=== PATIENT | male | born 1945 | race Caucasian/White ===

== ENCOUNTER 2019-04-19 14:27 | Inpatient (IN) | payer OTHER ==
[2019-04-19 14:50] LABS: Absolute Lymphocytes (CBC) 1.3 K/uL (0.7-4.9); Basophils % 0.5 % (0-1.3); Eosinophils % 1.9 % (0-4.4); Hematocrit 44.6 % (39.6-49.0); Lymphocytes % 10.3 % (15.3-44.8); MPV 7.9 fL (7.6-11.3); Monocytes % 7.1 % (3.3-12.3)
[2019-04-19] MEDS ORDERED: IPRATROPIUM BROM 0.5MG/2.5ML ONE (14:50)
[2019-04-19] MEDS ORDERED: LEVALBUTEROL 0.63 MG/3 ML NEB ONE (14:50)
[2019-04-19 14:52] LABS: Protime INR 0.89
[2019-04-19] MEDS ORDERED: METHYLPREDNISOLONE 125 MG INJ ONE (14:56)
[2019-04-19] MEDS ORDERED: FOLIC ACID 5 MG/ML VIAL ONE (14:57)
[2019-04-19] MEDS ORDERED: NA CHLORIDE 0.9% 1,000 ML ONE (14:57)
[2019-04-19] MEDS ORDERED: NA CHLORIDE 0.9% 500 ML ONE (14:57)
[2019-04-19] MEDS ORDERED: PANTOPRAZOLE 40 MG INJ ONE (14:58)
[2019-04-19 15:12] LABS: Albumin 3.8 g/dL (3.4-5.0); Bilirubin Direct 0.1 mg/dL (0-0.2); Bilirubin Total 0.3 mg/dL (0.2-1.0); Potassium 5.2 mmol/L (3.5-5.1); Protein, Total 7.9 g/dL (6.4-8.2); Troponin (Emerg Dept Use Only) 0.02 ng/mL (0.0-0.045)
--- NOTE | 2019-04-19 15:23 | RAD REPORT ---
EXAM DESCRIPTION: CT - Ct Stroke Brain Wo Cont - 04/19/2019 3:10 pm CLINICAL HISTORY: Acute onset speech abnormality, stroke-like symptoms CLINICAL HISTORY: November 2015 TECHNIQUE: Axial 5 millimeter thick images of the head were obtained without IV contrast. All CT scans are performed using dose optimization technique as appropriate and may include automated exposure control or mA/KV adjustment according to patient size. FINDINGS: No intracranial hemorrhage, mass, or cerebral edema. No acute infarction identifiable. No cortical edema or sulcal effacement. Patient has prominent atrophy changes worse in the cerebral jesus alberto sphere were there is additional volume loss from old CVA changes. Old right cerebellum CVA changes ar e present. Ventricles are in proportion to the amount of volume loss. Underlying chronic ischemic viviana nges are present. Gould matter-white matter differentiation is preserved. No globe or orbital content abnormality. Visualized portions of the mastoid air cells, paranasal sinuses, and orbits are unremarkable. Findings telephoned to Dr Soto 1518 hours IMPRESSION: No intracranial hemorrhage is present. No acute cortical based infarction. Atrophy, chronic ischemic change and old infarction changes are present. Ventricles are in proportion to volume loss.
--- NOTE | 2019-04-19 15:25 | RAD REPORT ---
EXAM DESCRIPTION: RAD - Chest Single View - 04/19/2019 3:11 pm CLINICAL HISTORY: Difficulty breathing, Stroke protocol chest film COMPARISON: December 2015 TECHNIQUE: AP portable chest image was obtained 1444 hour . FINDINGS: Significant baseline fibrotic lung change present. Increased interstitial and patchy alveo lar opacities have developed in the right lower lung field. Overall lung markings are fractionally in creased from the comparison. Heart and vasculature are normal. No measurable pleural effusion and no pneumothorax. No acute bony abnormality seen. No acute aortic findings suspected. IMPRESSION: Suspected early right lung base pneumonia.
[2019-04-19 15:26] LABS: Blood Gas Oxyhemoglobin 97.5 % (94-97); Blood O2 Saturation 99.3 % (92-98.5)
[2019-04-19] MEDS ORDERED: DEXAMETHASONE 10 MG/ML VIAL ONE (15:40)
[2019-04-19] MEDS ORDERED: Levofloxacin500mg IV 500 MG/100 ML BAG IV ONE (15:40)
--- NOTE | 2019-04-19 15:51 | ER ---
Nurse's Notes [facility] Name: Gallo Yu Age: 73 yrs Sex: Male : 1945 Arrival Date: 04/19/2019 Time: 14:29 Bed 3 Private MD: Diagnosis: Chronic obstructive pulmonary disease with (acute) exacerbation;Hypoxemia;Hypo-osmolality and hyponatremia;Dyspnea;Pneumonia due to other specified bacteria Presentation: 04/19 14:25 Presenting complaint: EMS states: caretaker resort reported that pt started having difficulty iw breathing about an hour ago, then had sudden onset of garbled speech while EMS was on scene, caretaker resort arrives to ER and stated that pt always has garbled speech but it became a bit worse when he started having trouble breathing, EMS reports pt was 80% on RA, placed on NRB is 100%, labored breathing, RT at bedside for BiPAP placement , pt has Shannon in place, hx of COPD, CVA, bipolar, is on blood thinner and inhaler. Transition of care: patient was not received from another setting of care. Onset of symptoms was April 19, 2019. Risk Assessment: Do you want to hurt yourself or someone else? Patient reports no desire to harm self or others. Initial Sepsis Screen: Does the patient meet any 2 criteria? RR > 20 per min. No. Patient's initial sepsis screen is negative. Does the patient have a suspected source of infection? No. Patient's initial sepsis screen is negative. Care prior to arrival: Glucose check: 196 Oxygen administered. via a non-rebreather mask. 14:25 Method Of Arrival: EMS: [facility] iw 14:25 Acuity: MADDY 1 iw 14:25 Note EMS reports worsening garbled speech started at 1415. aa5 14:25 An acute neurological deficit is present. The patients blood glucose was checked before aa5 arriving to the hospital and was found to be normal. Triage Assessment: 14:25 The onset of the patients symptoms was April 19, 2019 at 14:15. aa5 Stroke Activation: Symptom onset < 3 hours Physician: Stroke Attending; Name: ; Notified At: ; Arrived At: Physician: Chief Stroke Resident; Name: ; Notified At: ; Arrived At: Physician: Stroke Resident; Name: ; Notified At: ; Arrived At: Physician: ED Attending; Name: ; Notified At: ; Arrived At: Physician: ED Resident; Name: ; Notified At: ; Arrived At: Historical: - Allergies: 14:51 GABAPENTIN; iw - Home Meds: 14:51 clopidogrel 75 mg Oral tab 1 tab once daily [Active]; multivitamin with minerals Oral iw tab [Active]; 17:23 carbamazepine 200 mg Oral tab 2 tabs twice a day [Active]; lisinopril 10 mg Oral tab 1 iw tab once daily [Active]; perphenazine 4 mg oral tab 1 tab 2 times per day [Active]; BuSpar Oral three times a day [Active]; lorazepam 1 mg Oral tab 1 tab 2 times per day, PRN [Active]; hydroxyzine HCl 25 mg Oral tab 2 times per day, PRN [Active]; - PMHx: 14:51 CVA; Depression; Hypertension; PAD; iw - 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 - Family history:: not pertinent. - Ebola Screening: : Patient negative for fever greater than or equal to 101.5 degrees Fahrenheit, and additional compatible Ebola Virus Disease symptoms Patient denies exposure to infectious person Patient denies travel to an Ebola-affected area in the 21 days before illness onset No symptoms or risks identified at this time. - Social history:: Smoking status: Patient uses tobacco products, smokes one pack cigarettes per day. Screenin:30 Abuse screen: Denies threats or abuse. Nutritional screening: No deficits noted. aa5 Tuberculosis screening: No symptoms or risk factors identified. Fall Risk Fall in past 12 months (25 points). Secondary diagnosis (15 points) CVA, IV access (20 points). Ambulatory Aid- None/Bed Rest/Nurse Assist (0 pts). Mental Status- Oriented to own ability (0 pts). Total Arciniega Fall Scale indicates High Risk Score (45 or more points). Fall prevention measures have been instituted. Side Rails Up X 2 Placed Close to Nursing Station. Assessment: 14:25 General: Appears distressed, Behavior is cooperative. Pain: Denies pain. Neuro: Level aa5 of Consciousness is awake, alert, obeys commands, Oriented to person, place, time, situation, Engine Boss are equal bilaterally Moves all extremities. Speech is slurred, Facial droop on right, Pupils are PERRLA. Cardiovascular: Heart tones S1 S2 present Rhythm is sinus rhythm. Respiratory: Airway is patent Respiratory effort is labored, Respiratory pattern is symmetrical, tachypnea Breath sounds with wheezes bilaterally. GI: Abdomen is round Bowel sounds present X 4 quads. Abd is soft and non tender X 4 quads. : Shannon in place to gravity drainage. EENT: Absence of teeth noted . Derm: Skin is pink, warm \\T\\ dry. Musculoskeletal: R BKA noted. 14:25 VAN Scoring: Arm Drift: Patients demonstrates NO arm weakness. Patient is VAN Negative. aa5 14:40 Reassessment: Pt being placed on Bi-PAP by RT. aa5 14:40 Reassessment: Pt's caregiver at bedside. Pt's caregiver is poor historian. Pt's aa5 caregiver "his speech sounds a little more garbled than normal but he normally has trouble speaking". 15:00 Reassessment: Pt to CT accompanied by me and RT, O2 via NC 2 L, 100% 2 L NC. . aa5 15:15 Reassessment: Pt transported back from CT. Pt placed back on Bi-PAP. aa5 15:15 Reassessment: Patient states feeling better. aa5 15:15 Neuro: Level of Consciousness is awake, alert, obeys commands, Oriented to person, aa5 place, time, situation, Engine Boss are equal bilaterally Moves all extremities. Speech is slurred, Facial droop on right, Pupils are PERRLA. Respiratory: Airway is patent Respiratory effort is even, unlabored, Respiratory pattern is regular, symmetrical. Respiratory: wheezing diminished. Derm: Skin is pink, warm \\T\\ dry. 15:29 Reassessment: Dr. Soto speaking to patient about need for T-PA administration. Pt aa5 refused T-PA administration. . 15:29 Reassessment: Bi-PAP dc'd by Dr. Soto. aa5 15:29 T-PA (Activase) Screening: Indications: No evidence of intracranial hemorrhage or CT of aa5 head and no evidence of peripheral hemorrhage or recent CVA: Yes. Consent for thrombolytic therapy: No. 16:15 Patient has been NPO before screening. The patient is alert, and able to follow aa5 commands. The patient exhibits slurred or garbled speech. The patient is exhibiting difficulty speaking. The patient is exhibiting difficulty understanding words. The patient is able to swallow own secretions with no drooling or need for suction. Patient tolerated one teaspoon of water. No drooling, immediate coughing, gurgling, or clearing of the throat was noted. The patient tolerated 90mL of water. No drooling, immediate coughing, gurgling, or clearing of the throat was noted. The patient passed the bedside swallow screening. Oral medications may be given as ordered. Contact Physician for further diet orders. Provider notified of bedside swallow screening results: Jamin Soto MD. 16:15 Reassessment: Patient is alert, oriented x 3, equal unlabored respirations, skin aa5 warm/dry/pink. Patient denies pain at this time. 16:37 Reassessment: Repeat ABG completed by RT . aa5 16:39 Reassessment: Breath sounds diminished bilaterally with wheezing. Pt states "I feel aa5 better". 16:39 Neuro: Level of Consciousness is awake, alert, obeys commands, Oriented to person, aa5 place, time, situation, Speech is slurred. Respiratory: Airway is patent Respiratory effort is even, unlabored, Respiratory pattern is regular, symmetrical. 16:39 Derm: Skin is pink, warm \\T\\ dry. aa5 16:40 Reassessment: Pt placed back on Bi-PAP per Dr. Soto. aa5 17:40 Reassessment: Patient is alert, oriented x 3, equal unlabored respirations, skin aa5 warm/dry/pink. Patient denies pain at this time. Dr. Yo (Hospitalist) at bedside speaking to pt . 17:40 Respiratory: Denies shortness of breath. aa5 18:20 Reassessment: Pt resting in bed with eyes closed, respirations even and unlabored, skin aa5 is pink/warm/dry. Pt tolerating Bi-PAP well. . 18:45 Reassessment: Patient is alert, oriented x 3, equal unlabored respirations, skin aa5 warm/dry/pink. Patient denies pain at this time. Pt requesting to take off Bi-PAP, pt educated on need for Bi-PAP at this time, pt verbalizes understanding and agrees to continue with Bi-PAP, pt tolerating well. Awaiting room assignment, pt notified of wait time.. Vital Signs: 14:30 BP 163 / 95; Pulse 89; Resp 38 S; Temp 96.5(A); Pulse Ox 100% on Non-rebreather mask; aa5 Pain 0/10; 14:49 BP 173 / 102; Pulse 89; Resp 28 S; Pulse Ox 100% on 40% BiPAP; aa5 15:30 BP 141 / 78; Pulse 79; Resp 22 S; Pulse Ox 100% on 2 lpm NC; aa5 16:00 BP 132 / 84; Pulse 75; Resp 20 S; Pulse Ox 99% on 2 lpm NC; aa5 16:37 BP 138 / 84; Pulse 82; Resp 20 S; Temp 98.2(TE); Pulse Ox 100% on 2 lpm NC; Pain 0/10; aa5 16:56 BP 118 / 74; Pulse 80; Resp 18 S; Pulse Ox 100% on BiPAP; aa5 17:30 BP 119 / 74; Pulse 73; Resp 18 S; Pulse Ox 100% on BiPAP; aa5 18:00 BP 123 / 77; Pulse 74; Resp 20 S; Temp 97.9(TE); Pulse Ox 100% on BiPAP; aa5 18:40 BP 105 / 64; Pulse 70; Resp 18 S; Temp 97.0(TE); Pulse Ox 100% on BiPAP; aa5 NIH Stroke Scale Scores: 14:25 NIHSS Score: 2 aa5 15:15 NIHSS Score: 2 aa5 15:41 NIHSS Score: 3 viviana 17:40 NIHSS Score: 2 aa5 ED Course: 14:25 Patient arrived in ED. aa5 14:25 Arm band placed on. aa5 14:25 Patient has correct armband on for positive identification. Placed in gown. Bed in low aa5 position. Side rails up X2. secured entrance monitor on. Pulse ox on. NIBP on. 14:26 Triage completed. aa5 14:27 Missed attempt(s): 22 gauge in right upper arm. Bleeding controlled, band aid applied, aa5 catheter tip intact. 14:32 Jamin Soto MD is Attending Physician. viviana 14:32 Missed attempt(s): 22 gauge in right antecubital area. Bleeding controlled, band aid aa5 applied, catheter tip intact. 14:35 Inserted saline lock: 20 gauge in left antecubital area, using aseptic technique. IV aa5 inserted by Meg Moser RN. 14:39 Katerina Fry, GERONIMO is Primary Nurse. aa5 14:42 EKG done, by ED staff, reviewed by Jamin Soto MD. jb1 15:10 CT completed. Patient tolerated procedure well. Patient moved back from CT. mw3 15:10 CT Stroke Brain w/o Contrast In Process Unspecified. EDMS 15:11 XRAY Chest (1 view) In Process Unspecified. EDMS 15:19 BIPAP Sent. aa5 15:47 Karen Mcneil MD is Hospitalizing Provider. viviana 15:47 Jacqueline Yo MD is Hospitalizing Provider. viviana 16:23 Urine collected: Shannon catheter specimen, cloudy, junior colored. jb1 18:49 No provider procedures requiring assistance completed. aa5 19:08 Report given to GERONIMO Melo and GERONIMO Correia. aa5 19:50 Patient admitted, IV remains in place. tl2 Administered Medications: 14:37 Drug: Xopenex 3.75 mg Route: Inhalation; aa5 14:37 Drug: AtroVENT Aerosol 0.5 mg Route: Inhalation; aa5 14:40 Drug: SOLU-Medrol 125 mg Route: IVP; Site: left antecubital; aa5 14:45 Follow up: Response: No adverse reaction aa5 14:40 Drug: NS 0.9% 500 ml Route: IV; Rate: bolus; Site: left antecubital; aa5 15:10 Follow up: Response: No adverse reaction; IV Status: Completed infusion aa5 14:40 Drug: NS 0.9% 1000 ml Route: IV; Rate: 125 ml/hr; Site: left antecubital; aa5 14:40 Drug: foLIC Acid 1 mg Route: IVPB; Site: left antecubital; aa5 14:42 Drug: ProTONIX 40 mg Route: IVP; Site: left antecubital; aa5 14:50 Follow up: Response: No adverse reaction aa5 15:26 Drug: Decadron - Dexamethasone 10 mg Route: IVP; Site: left antecubital; aa5 15:30 Follow up: Response: No adverse reaction aa5 16:20 Drug: levofloxacin 500 mg Volume: 100 ml; Route: IVPB; Infused Over: 60 mins; Site: aa5 left antecubital; 17:20 Follow up: Response: No adverse reaction; IV Status: Completed infusion aa5 16:20 Drug: Aspirin 162 mg Route: PO; aa5 17:49 Follow up: Response: No adverse reaction aa5 16:22 Drug: Xopenex 2.5 mg Route: Inhalation; aa5 17:48 Drug: Kayexalate 30 grams Route: PO; aa5 18:45 Follow up: Response: No adverse reaction aa5 Point of Care Testing: Blood Glucose: 14:30 Blood Glucose: 120 mg/dL; aa5 Ranges: Outcome: 15:50 Decision to Hospitalize by Provider. viviana 19:15 Admitted to ICU Report called to GERONIMO Mcfarland aa5 19:50 Condition: stable tl2 19:50 Discharge instructions given to patient, Instructed on the need for admit. 19:51 Patient left the ED. tl2 NIH Stroke Scale - NIH Stroke Score Date: 04/19/2019 Time: 14:25 Total Score = 2 1a. Level of Consciousness (LOC) - 0(Alert) 1b. Level of Consciousness (LOC) (Year \\T\\ Age) - 0(Both) 1c. LOC Commands (Open \\T\\ Closes Eyes/Road Crew Member) - 0(Both) 2. Best Gaze (Lateral Gaze Paresis) - 0(Normal) 3. Visual Field Loss - 0(No visual loss) 4. Facial Palsy - 1(Minor Paralysis) 5a. Left Arm: Motor (10-second hold) - 0(No drift) 5b. Right Arm: Motor (10-second hold) - 0(No drift) 6a. Left Leg: Motor (5-second hold - always test supine) - 0(No drift) 6b. Right Leg: Motor (5-second hold - always test supine) - 0(No drift) 7. Limb Ataxia (finger/nose \\T\\ heel/griggs - test with eyes open) - 0(Absent) 8. Sensory Loss (pinprick arms/legs/face) - 0(Normal) 9. Best Language: Aphasia (description/naming/reading) - 0(No aphasia) 10. Dysarthria (speech clarity - read or repeat words) - 1(Mild to Moderate) 11. Extinction and Inattention (visual/tactile/auditory/spatial/personal) - 0(No abnormality) Initials: aa5 NIH Stroke Scale - NIH Stroke Score Date: 04/19/2019 Time: 15:15 Total Score = 2 1a. Level of Consciousness (LOC) - 0(Alert) 1b. Level of Consciousness (LOC) (Year \\T\\ Age) - 0(Both) 1c. LOC Commands (Open \\T\\ Closes Eyes/Road Crew Member) - 0(Both) 2. Best Gaze (Lateral Gaze Paresis) - 0(Normal) 3. Visual Field Loss - 0(No visual loss) 4. Facial Palsy - 1(Minor Paralysis) 5a. Left Arm: Motor (10-second hold) - 0(No drift) 5b. Right Arm: Motor (10-second hold) - 0(No drift) 6a. Left Leg: Motor (5-second hold - always test supine) - 0(No drift) 6b. Right Leg: Motor (5-second hold - always test supine) - 0(No drift) 7. Limb Ataxia (finger/nose \\T\\ heel/griggs - test with eyes open) - 0(Absent) 8. Sensory Loss (pinprick arms/legs/face) - 0(Normal) 9. Best Language: Aphasia (description/naming/reading) - 0(No aphasia) 10. Dysarthria (speech clarity - read or repeat words) - 1(Mild to Moderate) 11. Extinction and Inattention (visual/tactile/auditory/spatial/personal) - 0(No abnormality) Initials: aa5 NIH Stroke Scale - NIH Stroke Score Date: 04/19/2019 Time: 15:41 Total Score = 3 1a. Level of Consciousness (LOC) - 0(Alert) 1b. Level of Consciousness (LOC) (Year \\T\\ Age) - 0(Both) 1c. LOC Commands (Open \\T\\ Closes Eyes/Road Crew Member) - 0(Both) 2. Best Gaze (Lateral Gaze Paresis) - 0(Normal) 3. Visual Field Loss - 0(No visual loss) 4. Facial Palsy - 1(Minor Paralysis) 5a. Left Arm: Motor (10-second hold) - 0(No drift) 5b. Right Arm: Motor (10-second hold) - 0(No drift) 6a. Left Leg: Motor (5-second hold - always test supine) - 0(No drift) 6b. Right Leg: Motor (5-second hold - always test supine) - 0(No drift) 7. Limb Ataxia (finger/nose \\T\\ heel/griggs - test with eyes open) - 0(Absent) 8. Sensory Loss (pinprick arms/legs/face) - 0(Normal) 9. Best Language: Aphasia (description/naming/reading) - 1(Mild to moderate aphasia) 10. Dysarthria (speech clarity - read or repeat words) - 1(Mild to Moderate) 11. Extinction and Inattention (visual/tactile/auditory/spatial/personal) - 0(No abnormality) Initials: viviana NIH Stroke Scale - NIH Stroke Score Date: 04/19/2019 Time: 17:40 Total Score = 2 1a. Level of Consciousness (LOC) - 0(Alert) 1b. Level of Consciousness (LOC) (Year \\T\\ Age) - 0(Both) 1c. LOC Commands (Open \\T\\ Closes Eyes/Road Crew Member) - 0(Both) 2. Best Gaze (Lateral Gaze Paresis) - 0(Normal) 3. Visual Field Loss - 0(No visual loss) 4. Facial Palsy - 1(Minor Paralysis) 5a. Left Arm: Motor (10-second hold) - 0(No drift) 5b. Right Arm: Motor (10-second hold) - 0(No drift) 6a. Left Leg: Motor (5-second hold - always test supine) - 0(No drift) 6b. Right Leg: Motor (5-second hold - always test supine) - 0(No drift) 7. Limb Ataxia (finger/nose \\T\\ heel/griggs - test with eyes open) - 0(Absent) 8. Sensory Loss (pinprick arms/legs/face) - 0(Normal) 9. Best Language: Aphasia (description/naming/reading) - 1(Mild to moderate aphasia) 10. Dysarthria (speech clarity - read or repeat words) - 0(Normal) 11. Extinction and Inattention (visual/tactile/auditory/spatial/personal) - 0(No abnormality) Initials: aa5 Signatures: Dispatcher [employer] EDMS Brandon Jeff jb1 Jamin Soto MD MD cha Williams, Irene, RN RN iw Calderon, Audri, RN RN aa5 J[address] RN RN hj Knox, Taylor, RN RN tl2 Alyssa Mckay mw3 Corrections: (The following items were deleted from the chart) 15:40 14:29 Patient arrived in ED. aa5 15:40 14:51 Arm band placed on iw aa5 15:41 14:46 Triage completed. iw aa5 16:43 15:15 Reassessment: Pt transported back from CT. aa5 aa5 16:43 16:39 Reassessment: Patient is alert, oriented x 3, equal unlabored aa5 respirations, skin warm/dry/pink. Breath sounds diminished bilaterally with wheezing. Pt states "I feel better". aa5 16:47 15:15 Neuro: Level of Consciousness is awake, alert, obeys commands, Oriented aa5 to person, place, time, situation, aa5 16:56 14:49 BP 173 / 102; Pulse 89bpm; Resp 28bpm; Spontaneous; Pulse Ox 100% aa5 Non-rebreather mask; iw 17: 14:51 Home Meds: Abilify 5 mg Oral tab 1 tab once daily; 17 14:51 Home Meds: amitriptyline 25 mg Oral tab 1 tab nightly; iw 14:51 Home Meds: aspirin 325 mg Oral tab 1 tab once daily; iw iw 14:51 Home Meds: carbamazepine 200 mg Oral tab twice a day; iw iw 17 14:51 Home Meds: Colace 100 mg Oral cap 1 cap 2 times per day; iw iw 14:51 Home Meds: Hemocyte 324 mg (106 mg iron) Oral tab twice a day; iw iw 17 14:51 Home Meds: magnesium oxide 400 mg Oral cap daily; iw 14:51 Home Meds: tamsulosin 0.4 mg Oral cp24 1 cap once daily; iw 14:51 Home Meds: tramadol 50 mg Oral tab 1 tab Q4H prn; iw iw
--- NOTE | 2019-04-19 15:51 | EDPHYS ---
Physician Documentation [facility] Name: Gallo Yu Age: 73 yrs Sex: Male : 1945 Arrival Date: 04/19/2019 Time: 14:29 Bed 3 Private MD: ED Physician Jamin Soto HPI: 04/19 14:38 This 73 yrs old Male presents to ER via Unassigned with complaints of viviana dyspnea, and speech changes today. 14:39 The patient has shortness of breath at rest, with light activity. Onset: The viviana symptoms/episode began/occurred just prior to arrival, this morning. The patient's shortness of breath has no apparent modifying factors. The patient's problem is reported as dysphasia, weakness, that is generalized. Onset: The symptoms/episode began/occurred today. The symptoms are alleviated by nothing. The symptoms are aggravated by nothing. Historical: - Allergies: 14:51 GABAPENTIN; iw - Home Meds: 14:51 clopidogrel 75 mg Oral tab 1 tab once daily [Active]; multivitamin with minerals Oral iw tab [Active]; 17:23 carbamazepine 200 mg Oral tab 2 tabs twice a day [Active]; lisinopril 10 mg Oral tab 1 iw tab once daily [Active]; perphenazine 4 mg oral tab 1 tab 2 times per day [Active]; BuSpar Oral three times a day [Active]; lorazepam 1 mg Oral tab 1 tab 2 times per day, PRN [Active]; hydroxyzine HCl 25 mg Oral tab 2 times per day, PRN [Active]; - PMHx: 14:51 CVA; Depression; Hypertension; PAD; iw - 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 - Family history:: not pertinent. - Ebola Screening: : Patient negative for fever greater than or equal to 101.5 degrees Fahrenheit, and additional compatible Ebola Virus Disease symptoms Patient denies exposure to infectious person Patient denies travel to an Ebola-affected area in the 21 days before illness onset No symptoms or risks identified at this time. - Social history:: Smoking status: Patient uses tobacco products, smokes one pack cigarettes per day. ROS: 14:39 Constitutional: Negative for fever, chills, and weight loss, Eyes: Negative for injury, viviana pain, redness, and discharge, ENT: Negative for injury, pain, and discharge, Neck: Negative for injury, pain, and swelling, Cardiovascular: Negative for chest pain, palpitations, and edema, Abdomen/GI: Negative for abdominal pain, nausea, vomiting, diarrhea, and constipation, Back: Negative for injury and pain, : Negative for injury, bleeding, discharge, and swelling, MS/Extremity: Negative for injury and deformity, Skin: Negative for injury, rash, and discoloration, Psych: Negative for depression, anxiety, suicide ideation, homicidal ideation, and hallucinations, Allergy/Immunology: Negative for hives, rash, and allergies, Endocrine: Negative for neck swelling, polydipsia, polyuria, polyphagia, and marked weight changes, Hematologic/Lymphatic: Negative for swollen nodes, abnormal bleeding, and unusual bruising. 14:39 Respiratory: Positive for cough, shortness of breath, wheezing, inspiratory, expiratory. 14:39 Neuro: Positive for speech changes, weakness. Exam: 14:39 Constitutional: This is a well developed, well nourished patient who is awake, alert, viviana and in no acute distress. Head/Face: Normocephalic, atraumatic. Eyes: Pupils equal round and reactive to light, extra-ocular motions intact. Lids and lashes normal. Conjunctiva and sclera are non-icteric and not injected. Cornea within normal limits. Periorbital areas with no swelling, redness, or edema. ENT: Nares patent. No nasal discharge, no septal abnormalities noted. Tympanic membranes are normal and external auditory canals are clear. Oropharynx with no redness, swelling, or masses, exudates, or evidence of obstruction, uvula midline. Mucous membranes moist. Neck: Trachea midline, no thyromegaly or masses palpated, and no cervical lymphadenopathy. Supple, full range of motion without nuchal rigidity, or vertebral point tenderness. No Meningismus. Chest/axilla: Normal chest wall appearance and motion. Nontender with no deformity. No lesions are appreciated. Cardiovascular: Regular rate and rhythm with a normal S1 and S2. No gallops, murmurs, or rubs. Normal PMI, no JVD. No pulse deficits. Abdomen/GI: Soft, non-tender, with normal bowel sounds. No distension or tympany. No guarding or rebound. No evidence of tenderness throughout. Back: No spinal tenderness. No costovertebral tenderness. Full range of motion. Male : Normal genitalia with no discharge or lesions. Skin: Warm, dry with normal turgor. Normal color with no rashes, no lesions, and no evidence of cellulitis. MS/ Extremity: Pulses equal, no cyanosis. Neurovascular intact. Full, normal range of motion. Psych: Awake, alert, with orientation to person, place and time. Behavior, mood, and affect are within normal limits. 14:39 Respiratory: moderate respiratory distress is noted, Respirations: labored breathing, that is moderate, Breath sounds: bronchial sounds, rhonchi, wheezing: inspiratory expiratory 15:41 Radiologist reports: negative [facility] Vital Signs: 14:30 BP 163 / 95; Pulse 89; Resp 38 S; Temp 96.5(A); Pulse Ox 100% on Non-rebreather mask; aa5 Pain 0/10; 14:49 BP 173 / 102; Pulse 89; Resp 28 S; Pulse Ox 100% on 40% BiPAP; aa5 15:30 BP 141 / 78; Pulse 79; Resp 22 S; Pulse Ox 100% on 2 lpm NC; aa5 16:00 BP 132 / 84; Pulse 75; Resp 20 S; Pulse Ox 99% on 2 lpm NC; aa5 16:37 BP 138 / 84; Pulse 82; Resp 20 S; Temp 98.2(TE); Pulse Ox 100% on 2 lpm NC; Pain 0/10; aa5 16:56 BP 118 / 74; Pulse 80; Resp 18 S; Pulse Ox 100% on BiPAP; aa5 17:30 BP 119 / 74; Pulse 73; Resp 18 S; Pulse Ox 100% on BiPAP; aa5 18:00 BP 123 / 77; Pulse 74; Resp 20 S; Temp 97.9(TE); Pulse Ox 100% on BiPAP; aa5 18:40 BP 105 / 64; Pulse 70; Resp 18 S; Temp 97.0(TE); Pulse Ox 100% on BiPAP; aa5 NIH Stroke Scale Scores: 14:25 NIHSS Score: 2 aa5 15:15 NIHSS Score: 2 aa5 15:41 NIHSS Score: 3 viviana 17:40 NIHSS Score: 2 aa5 MDM: 14:32 Patient medically screened. [facility] 14:42 Data reviewed: vital signs, nurses notes, EMS record, EKG, radiologic studies, . viviana 15:43 ED course: pt refused tpa, carecater agress, no tpa. they both dont want any risk of viviana getting worse, if condition stayed as it is pt and applications programmer want that, tpa risk was explaind as very small, less than 5 %, possibility of improvement is high.. 04/19 14:37 Order name: Basic Metabolic Panel [facility] 04/19 14:37 Order name: CBC with Diff [facility] 04/19 14:37 Order name: LFT's [facility] 04/19 14:37 Order name: Magnesium [facility] 04/19 14:37 Order name: NT PRO-BNP [facility] 04/19 14:37 Order name: PT-INR; Complete Time: 15:38 [facility] 04/19 14:37 Order name: Troponin (emerg Dept Use Only); Complete Time: 15:38 [facility] 04/19 14:37 Order name: Blood Culture Adult (2) [facility] 04/19 14:37 Order name: Urine Culture [facility] 04/19 14:37 Order name: Lipase; Complete Time: 15:38 [facility] 04/19 14:37 Order name: Tegretol Level; Complete Time: 15:38 [facility] 04/19 14:39 Order name: Basic Metabolic Panel; Complete Time: 15:38 EDAL 04/19 14:39 Order name: CBC with Automated Diff; Complete Time: 15:38 EDAL 04/19 14:39 Order name: Liver (Hepatic) Function; Complete Time: 15:38 EDAL 04/19 14:37 Order name: XRAY Chest (1 view); Complete Time: 15:38 [facility] 04/19 14:37 Order name: CT Stroke Brain w/o Contrast; Complete Time: 15:38 [facility] 04/19 14:39 Order name: Magnesium; Complete Time: 15:38 EDAL 04/19 14:39 Order name: NT PRO-BNP; Complete Time: 15:38 EDAL 04/19 14:46 Order name: BIPAP [facility] 04/19 15:26 Order name: ABG Arterial Blood Gas; Complete Time: 15:38 EDAL 04/19 15:41 Order name: Urine Osmolality [facility] 04/19 15:41 Order name: Urine Sodium Random [facility] 04/19 15:41 Order name: Osmolality, Serum [facility] 04/19 15:42 Order name: Osmolality, Urine EDAL 04/19 16:12 Order name: ABG [facility] 04/19 16:47 Order name: ABG Arterial Blood Gas [facility] 04/19 17:11 Order name: Urine Dipstick--Ancillary (enter results) 04/19 17:14 Order name: Urine Dipstick-Ancillary [facility] 04/19 19:48 Order name: Lactate [facility] 04/19 14:37 Order name: EKG; Complete Time: 14:39 [facility] 04/19 14:37 Order name: Cardiac monitoring; Complete Time: 14:42 [facility] 04/19 14:37 Order name: EKG - Nurse/Tech; Complete Time: 14:42 [facility] 04/19 14:37 Order name: IV Saline Lock; Complete Time: 14:42 [facility] 04/19 14:37 Order name: Labs collected and sent; Complete Time: 14:42 [facility] 04/19 14:37 Order name: O2 Per Protocol; Complete Time: 14:42 [facility] 04/19 14:37 Order name: O2 Sat Monitoring; Complete Time: 14:42 [facility] 04/19 14:37 Order name: Urine Dipstick-Ancillary (obtain specimen); Complete Time: 16:22 [facility] Administered Medications: 14:37 Drug: Xopenex 3.75 mg Route: Inhalation; aa5 14:37 Drug: AtroVENT Aerosol 0.5 mg Route: Inhalation; aa5 14:40 Drug: SOLU-Medrol 125 mg Route: IVP; Site: left antecubital; aa5 14:45 Follow up: Response: No adverse reaction aa5 14:40 Drug: NS 0.9% 500 ml Route: IV; Rate: bolus; Site: left antecubital; aa5 15:10 Follow up: Response: No adverse reaction; IV Status: Completed infusion aa5 14:40 Drug: NS 0.9% 1000 ml Route: IV; Rate: 125 ml/hr; Site: left antecubital; aa5 14:40 Drug: foLIC Acid 1 mg Route: IVPB; Site: left antecubital; aa5 14:42 Drug: ProTONIX 40 mg Route: IVP; Site: left antecubital; aa5 14:50 Follow up: Response: No adverse reaction aa5 15:26 Drug: Decadron - Dexamethasone 10 mg Route: IVP; Site: left antecubital; aa5 15:30 Follow up: Response: No adverse reaction aa5 16:20 Drug: levofloxacin 500 mg Volume: 100 ml; Route: IVPB; Infused Over: 60 mins; Site: aa5 left antecubital; 17:20 Follow up: Response: No adverse reaction; IV Status: Completed infusion aa5 16:20 Drug: Aspirin 162 mg Route: PO; aa5 17:49 Follow up: Response: No adverse reaction aa5 16:22 Drug: Xopenex 2.5 mg Route: Inhalation; aa5 17:48 Drug: Kayexalate 30 grams Route: PO; aa5 18:45 Follow up: Response: No adverse reaction aa5 Point of Care Testing: Blood Glucose: 14:30 Blood Glucose: 120 mg/dL; aa5 Ranges: Critical Glucose Levels:Adult <50 mg/dl or >400 mg/dl <40 mg/dl or >180 mg/dl Disposition: 04/19/19 15:50 Hospitalization ordered by Jacqueline Yo for Inpatient Admission. Preliminary diagnosis are Chronic obstructive pulmonary disease with (acute) exacerbation, Hypoxemia, Hypo-osmolality and hyponatremia, Dyspnea, Pneumonia due to other specified bacteria. - Bed requested for Intensive Care Unit. - Status is Inpatient Admission. tl2 - Condition is Stable. - Problem is new. - Symptoms have improved. UTI on Admission? No NIH Stroke Scale - NIH Stroke Score Date: 04/19/2019 Time: 14:25 Total Score = 2 1a. Level of Consciousness (LOC) - 0(Alert) 1b. Level of Consciousness (LOC) (Year \T\ Age) - 0(Both) 1c. LOC Commands (Open \T\ Closes Eyes/Automatic Buffing Wheel Former) - 0(Both) 2. Best Gaze (Lateral Gaze Paresis) - 0(Normal) 3. Visual Field Loss - 0(No visual loss) 4. Facial Palsy - 1(Minor Paralysis) 5a. Left Arm: Motor (10-second hold) - 0(No drift) 5b. Right Arm: Motor (10-second hold) - 0(No drift) 6a. Left Leg: Motor (5-second hold - always test supine) - 0(No drift) 6b. Right Leg: Motor (5-second hold - always test supine) - 0(No drift) 7. Limb Ataxia (finger/nose \T\ heel/griggs - test with eyes open) - 0(Absent) 8. Sensory Loss (pinprick arms/legs/face) - 0(Normal) 9. Best Language: Aphasia (description/naming/reading) - 0(No aphasia) 10. Dysarthria (speech clarity - read or repeat words) - 1(Mild to Moderate) 11. Extinction and Inattention (visual/tactile/auditory/spatial/personal) - 0(No abnormality) Initials: aa5 NIH Stroke Scale - NIH Stroke Score Date: 04/19/2019 Time: 15:15 Total Score = 2 1a. Level of Consciousness (LOC) - 0(Alert) 1b. Level of Consciousness (LOC) (Year \T\ Age) - 0(Both) 1c. LOC Commands (Open \T\ Closes Eyes/Automatic Buffing Wheel Former) - 0(Both) 2. Best Gaze (Lateral Gaze Paresis) - 0(Normal) 3. Visual Field Loss - 0(No visual loss) 4. Facial Palsy - 1(Minor Paralysis) 5a. Left Arm: Motor (10-second hold) - 0(No drift) 5b. Right Arm: Motor (10-second hold) - 0(No drift) 6a. Left Leg: Motor (5-second hold - always test supine) - 0(No drift) 6b. Right Leg: Motor (5-second hold - always test supine) - 0(No drift) 7. Limb Ataxia (finger/nose \T\ heel/griggs - test with eyes open) - 0(Absent) 8. Sensory Loss (pinprick arms/legs/face) - 0(Normal) 9. Best Language: Aphasia (description/naming/reading) - 0(No aphasia) 10. Dysarthria (speech clarity - read or repeat words) - 1(Mild to Moderate) 11. Extinction and Inattention (visual/tactile/auditory/spatial/personal) - 0(No abnormality) Initials: 5 NIH Stroke Scale - NIH Stroke Score Date: 04/19/2019 Time: 15:41 Total Score = 3 1a. Level of Consciousness (LOC) - 0(Alert) 1b. Level of Consciousness (LOC) (Year \T\ Age) - 0(Both) 1c. LOC Commands (Open \T\ Closes Eyes/Automatic Buffing Wheel Former) - 0(Both) 2. Best Gaze (Lateral Gaze Paresis) - 0(Normal) 3. Visual Field Loss - 0(No visual loss) 4. Facial Palsy - 1(Minor Paralysis) 5a. Left Arm: Motor (10-second hold) - 0(No drift) 5b. Right Arm: Motor (10-second hold) - 0(No drift) 6a. Left Leg: Motor (5-second hold - always test supine) - 0(No drift) 6b. Right Leg: Motor (5-second hold - always test supine) - 0(No drift) 7. Limb Ataxia (finger/nose \T\ heel/griggs - test with eyes open) - 0(Absent) 8. Sensory Loss (pinprick arms/legs/face) - 0(Normal) 9. Best Language: Aphasia (description/naming/reading) - 1(Mild to moderate aphasia) 10. Dysarthria (speech clarity - read or repeat words) - 1(Mild to Moderate) 11. Extinction and Inattention (visual/tactile/auditory/spatial/personal) - 0(No abnormality) Initials: viviana NIH Stroke Scale - NIH Stroke Score Date: 04/19/2019 Time: 17:40 Total Score = 2 1a. Level of Consciousness (LOC) - 0(Alert) 1b. Level of Consciousness (LOC) (Year \T\ Age) - 0(Both) 1c. LOC Commands (Open \T\ Closes Eyes/Automatic Buffing Wheel Former) - 0(Both) 2. Best Gaze (Lateral Gaze Paresis) - 0(Normal) 3. Visual Field Loss - 0(No visual loss) 4. Facial Palsy - 1(Minor Paralysis) 5a. Left Arm: Motor (10-second hold) - 0(No drift) 5b. Right Arm: Motor (10-second hold) - 0(No drift) 6a. Left Leg: Motor (5-second hold - always test supine) - 0(No drift) 6b. Right Leg: Motor (5-second hold - always test supine) - 0(No drift) 7. Limb Ataxia (finger/nose \T\ heel/griggs - test with eyes open) - 0(Absent) 8. Sensory Loss (pinprick arms/legs/face) - 0(Normal) 9. Best Language: Aphasia (description/naming/reading) - 1(Mild to moderate aphasia) 10. Dysarthria (speech clarity - read or repeat words) - 0(Normal) 11. Extinction and Inattention (visual/tactile/auditory/spatial/personal) - 0(No abnormality) Initials: aa5 Signatures: Dispatcher [employer] EDSara Patel RN RN Jamin Soto MD MD cha Williams, Irene RN RN Katerina Fry RN RN aa5 Lorie Swift RN RN tl2 Corrections: (The following items were deleted from the chart) 16:03 15:50 Hospitalization Ordered by Jacqueline Yo MD for Inpatient Admission. viviana Preliminary diagnosis is Chronic obstructive pulmonary disease with (acute) exacerbation; Hypoxemia; Hypo-osmolality and hyponatremia; Dyspnea. Bed requested for Intensive Care Unit. Status is Inpatient Admission. Condition is Stable. Problem is new. Symptoms have improved. UTI on Admission? No. viviana 17:23 14:51 Home Meds: Abilify 5 mg Oral tab 1 tab once daily; [facility] 17:23 14:51 Home Meds: amitriptyline 25 mg Oral tab 1 tab nightly; [facility] 17: 14:51 Home Meds: aspirin 325 mg Oral tab 1 tab once daily; [facility] 17: 14:51 Home Meds: carbamazepine 200 mg Oral tab twice a day; [facility] 17:23 14:51 Home Meds: Colace 100 mg Oral cap 1 cap 2 times per day; iw 17: 14:51 Home Meds: Hemocyte 324 mg (106 mg iron) Oral tab twice a day; [facility] 17:23 14:51 Home Meds: magnesium oxide 400 mg Oral cap daily; iw 17:23 14:51 Home Meds: tamsulosin 0.4 mg Oral cp24 1 cap once daily; [facility] 17:23 14:51 Home Meds: tramadol 50 mg Oral tab 1 tab Q4H prn; [facility] 18:48 16:03 04/19/2019 15:50 Hospitalization Ordered by Jacqueline Yo MD for Inpatient dw Admission. Preliminary diagnosis is Chronic obstructive pulmonary disease with (acute) exacerbation; Hypoxemia; Hypo-osmolality and hyponatremia; Dyspnea; Pneumonia due to other specified bacteria. Bed requested for Intensive Care Unit. Status is Inpatient Admission. Condition is Stable. Problem is new. Symptoms have improved. UTI on Admission? No. viviana 19:51 18:48 04/19/2019 15:50 Hospitalization Ordered by Jacqueline Yo MD for Inpatient tl2 Admission. Preliminary diagnosis is Chronic obstructive pulmonary disease with (acute) exacerbation; Hypoxemia; Hypo-osmolality and hyponatremia; Dyspnea; Pneumonia due to other specified bacteria. Bed requested for Intensive Care Unit. Status is Inpatient Admission. Condition is Stable. Problem is new. Symptoms have improved. UTI on Admission? No. dw
[2019-04-19] MEDS ORDERED: ASPIRIN 81 MG CHEWABLE TABLET ONE (16:31)
[2019-04-19] MEDS ORDERED: LEVALBUTEROL 1.25 MG/3 ML NEB ONE (16:31)
[2019-04-19 16:39] LABS: Arterial Blood Carboxyhemoglob 0.9 % (0-1.5); Blood O2 Saturation 98.8 % (92-98.5)
[2019-04-19 17:14] LABS: Urine Blood TRACE (NEG); Urine Glucose NEGATIVE (NEG); Urine Protein 1+ (NEG)
[2019-04-19] MEDS ORDERED: SOD POLYSTYREN SUL 15 GM/60 ML UCUP ONE (17:21)
--- NOTE | 2019-04-19 17:58 | P.HP ---
Certification for Inpatient Patient admitted to: Inpatient With expected LOS: >2 Midnights Practitioner: I am a practitioner with admitting privileges, knowledge of patient current condition, hospital course, and medical plan of care. Services: Services provided to patient in accordance with Admission requirements found in Title 42 Section 412.3 of the Code of Federal Regulations Patient History Date of Service: 04/19/19 Reason for admission: Dysarthria and shortness of breath History of Present Illness: This is a 73-year-old male with history of prior CVA, depression, hypertension, peripheral artery disease, underlying psychiatric disease on multiple different medications admitted for episode of dysarthria and shortness of breath. Patient unable to really provide too much history, caregiver not at bedside. History obtained from ER nurse, the ER physician documentation in chart review. Patient started with shortness of breath this morning along with dysarthria. EMS was called and at that time of their evaluation patient was satting 80% on room air. He was brought into the ER. In the ER, he continued to have dysarthric speech. Initial vital signs with blood pressure of 163/95, heart rate of 89, respirations of 38, afebrile at 96.5 and 100% oxygen rebreather mask. CT scan of the head was negative for any acute abnormalities though did show old infarcts and chronic changes. Chest x-ray was positive for right lung base pneumonia. Labs remarkable for sodium decreased at 123, potassium increased to 5.2 and a leukocytosis of 12.7. Blood gases with pH is 7.26, pCO2 elevated at 63 and PO2 elevated to 263. Possibility of TPA was discussed, per ER physician. Patient and caregiver both refused t-PA administration after explanation of risks and benefits. No MRI was done here as we do not have the service of the weekend. In the ER, patient received breathing treatments, Levaquin, IV fluids and dexamethasone along with Solu-Medrol. At the time of my exam, he was alert and oriented x4 in no acute distress and reported feeling better. His speech was closer to baseline it seems, will have to confirm with caregiver when he is available. He continues to require BiPAP. Patient was admitted to the ICU closer monitoring due to his electrolyte abnormalities along with symptoms. Allergies gabapentin Allergy (Unverified 03/13/16 22:27) Unknown Home medications list reviewed: Yes Home Medications: Magnesium Oxide [Mag 0X*] 400 mg PO DAILY #30 tab 12/14/15 ARIPiprazole [Abilify*] 5 mg PO BEDTIME #30 tab 03/02/16 Amitriptyline [Elavil*] 25 mg PO BEDTIME PRN PRN #30 tab 03/02/16 Aspirin Tab [Uriel Aspirin*] 325 mg PO DAILY #30 tab 03/02/16 Carbamazepine [Tegretol*] 200 mg PO BID #60 tab 03/02/16 Clopidogrel Bisulfate [Plavix*] 75 mg PO DAILY #30 tablet 03/02/16 Docusate [Colace Cap*] 100 mg PO BID #60 cap 03/02/16 Iron/FA/Vit B-Com W/C [Hemocyte Plus*] 1 tab PO BIDWM #60 tab 03/02/16 Multivit,Ther Iron,Ca,FA & Min [Centrum Tablet*] 1 tab PO DAILY #30 tab Tamsulosin [Flomax*] 0.4 mg PO BEDTIME #30 cap 03/02/16 traMADol HCL [Ultram*] 100 mg PO Q4H PRN #60 tab 03/02/16 - Past Medical/Surgical History Diabetic: No -: CVA with Right sided weakness -: gangrene of the right toe -: Bipolar -: colitis -: HTN -: UTI w/sepsis 08/2015 -: Repair broken right arm -: Appendectomy -: Skin graft left outer calf ~ 20 yrs ago -: fractured left hip repair -: 02/16/2016 R BKA - Family History Mother -: Heart disease, Hypertension - Social History Alcohol use: No CD- Drugs: No Caffeine use: Yes Review of Systems 10-point ROS is otherwise unremarkable Physical Examination - Physical Exam General: Alert, Oriented x3, Moderate distress (Respiratory), Other (Elderly, ill appearing) Respiratory: Diminished, Crackles/rales Cardiovascular: Regular rate/rhythm, Normal S1 S2 Gastrointestinal: Normal bowel sounds, No tenderness Neurological: Other (Has a facial droop, though unsure if this is a new finding or from prior CVA), Abnormal speech (Slightly distorted, improved from admission as per nursing staff. I am able to understand the patient though.) - Studies Laboratory Data (last 24 hrs) 04/19/19 14:40: PT 10.5, INR 0.89 04/19/19 14:40: WBC 12.7 H, Hgb 14.7, Hct 44.6, Plt Count 389 04/19/19 14:40: Sodium 123 L, Potassium 5.2 H, BUN 18, Creatinine 1.12, Glucose 149 H, Magnesium 2.0, Total Bilirubin 0.3, AST 40 H, ALT 42, Alkaline Phosphatase 129 H, Lipase 231 Assessment and Plan - Problems (Diagnosis) (1) Sepsis Current Visit: Yes Status: Acute Qualifiers: Sepsis type: sepsis due to unspecified organism Qualified Code(s): A41.9 - Sepsis, unspecified organism (2) Pneumonia Current Visit: Yes Status: Acute Qualifiers: Pneumonia type: due to unspecified organism Laterality: right Lung location: lower lobe of lung Qualified Code(s): J18.1 - Lobar pneumonia, unspecified organism (3) Urinary tract infection Current Visit: Yes Status: Suspected Qualifiers: Urinary tract infection type: acute cystitis Hematuria presence: without hematuria Qualified Code(s): N30.00 - Acute cystitis without hematuria (4) Acidosis Current Visit: Yes Status: Acute (5) Acute respiratory failure Current Visit: Yes Status: Acute Qualifiers: Respiratory failure complication: hypercapnia Qualified Code(s): J96.02 - Acute respiratory failure with hypercapnia (6) Hyponatremia Current Visit: Yes Status: Acute (7) Hyperkalemia Current Visit: Yes Status: Acute (8) Hypertension Onset Date: 12/07/15 Current Visit: Yes Status: Chronic Qualifiers: Hypertension type: essential hypertension Qualified Code(s): I10 - Essential (primary) hypertension (9) Dysarthria Current Visit: Yes Status: Acute (10) Depression Current Visit: Yes Status: Chronic Qualifiers: Depression Type: major depressive disorder Major depression recurrence: recurrent Active/Remission status: remission status unspecified Qualified Code(s): F33.9 - Major depressive disorder, recurrent, unspecified (11) PAD (peripheral artery disease) Current Visit: Yes Status: Chronic - Plan Admit to the ICU for close monitoring. - Continue to monitor for sepsis - does meet criteria at this time with initial temperature of 96.5, rest Re rate of 38, WBC count of 12.7 along with a suspected source in pneumonia plus urinary tract infection. - Continue IV the antibiotics with Levaquin and Zosyn. Continue IV steroids - Continue to provide oxygen and BiPAP as needed. If no improvement, will consult pulmonology. - Monitor cultures, a.m. labs. - Continue IV fluids at maintenance dose - restart home medications as tolerated - per ER chart review, patient and caregiver both refused t-PA if needed. Will consider MRI if symptoms do not improve. Will also consider getting neurology consulted symptoms of dysarthria do not improve. - will need to discuss code status with patient and caregiver DVT prophylaxis: Home aspirin and Plavix GI prophylaxis: None Diet: NPO Disposition: Admit to ICU. Continue IV antibiotics and continue to monitor. Follow up cultures and a.m. labs - Advance Directives Does patient have a Living Will: No Does patient have a Durable POA for Healthcare: Yes Critical Care: Yes Time Spent Managing Pts Care (In Minutes): 55
[2019-04-19] MEDS ORDERED: Levofloxacin500mg IV 500 MG/100 ML BAG IV SCH (19:00)
[2019-04-19] MEDS: ALBUTEROL 2.5 MG/3 ML NEB SOL NEB SCH (20:00)
[2019-04-19] MEDS: IPRATROPIUM BROM 0.5MG/2.5ML NEB SCH (20:00)
[2019-04-19 23:18] VITALS: BMI 21.8
[2019-04-20] MEDS: PIPER/TAZO/NS 3.375gm 3.375 GM/100 ML BAG IVPB SCH ×3 (02:00→17:00)
[2019-04-20] MEDS: ALBUTEROL 2.5 MG/3 ML NEB SOL NEB SCH ×5 (02:00→20:00)
[2019-04-20] MEDS: METHYLPREDNISOLONE 40 MG INJ IV SCH ×3 (02:00→16:00)
[2019-04-20] MEDS ORDERED: NA CHLORIDE 0.9% 100 ML ONE (02:13)
[2019-04-20] MEDS ORDERED: PIPERACIL/TAZO 3.375 GM VIAL IV ONE (02:13)
[2019-04-20] MEDS: IPRATROPIUM BROM 0.5MG/2.5ML NEB SCH ×6 (04:00→20:00)
[2019-04-20 05:36] LABS: Absolute Lymphocytes (CBC) 0.5 K/uL (0.7-4.9); Basophils % 0.1 % (0-1.3); Eosinophils % 0.1 % (0-4.4); Hematocrit 39.6 % (39.6-49.0); Lymphocytes % 6.1 % (15.3-44.8); MPV 8.1 fL (7.6-11.3); Monocytes % 3.4 % (3.3-12.3)
[2019-04-20 05:53] LABS: Albumin 3.2 g/dL (3.4-5.0); Bilirubin Total 0.3 mg/dL (0.2-1.0); Magnesium 1.8 mg/dL (1.8-2.4); Potassium 4.1 mmol/L (3.5-5.1); Protein, Total 6.8 g/dL (6.4-8.2)
[2019-04-20] MEDS ORDERED: NA CHLORIDE 0.9% 1,000 ML IV SCH (06:00)
[2019-04-20] MEDS ORDERED: MAGNESIUM SULFATE 1 gm IVPB 1 GM/100 ML BAG IV ONE (07:27)
[2019-04-20 08:33] LABS: Blood Morphology Comment NOT SEEN (NOT SEEN); Platelet Estimate ADEQ
[2019-04-20] MEDS: NICOTINE 21 MG/PAT TD SCH (09:58)
--- NOTE | 2019-04-20 10:05 | P.PN ---
Subjective Date of Service: 04/20/19 Chief Complaint: Dysarthria and shortness of breath Subjective: Improving Patient seen and examined at bedside. No family at bedside. Chart reviewed and case discussed with nursing staff. Patient now off of BiPAP. Continues to be on oxygen, oxygenating well. Breathing improved. Speech and mentation back to baseline, per caregiver at bedside. Per caregiver, patient with a recent history of worsening dysphasia. Review of Systems 10-point ROS is otherwise unremarkable Physical Examination - Vital Signs Temperature: 97 F Blood Pressure: 125/60 Pulse: 73 Respirations: 12 Pulse Ox (%): 100 - Physical Exam General: Alert, In no apparent distress, Oriented x3 Neck: Supple, JVD not distended Respiratory: Diminished, Crackles/rales Cardiovascular: Regular rate/rhythm, Normal S1 S2 Neurological: Abnormal speech (Seems to be at baseline, per caregiver) - Studies Laboratory Data (last 24 hrs) 04/19/19 14:40: PT 10.5, INR 0.89 04/19/19 14:40: WBC 12.7 H, Hgb 14.7, Hct 44.6, Plt Count 389 04/19/19 14:40: Sodium 123 L, Potassium 5.2 H, BUN 18, Creatinine 1.12, Glucose 149 H, Magnesium 2.0, Total Bilirubin 0.3, AST 40 H, ALT 42, Alkaline Phosphatase 129 H, Lipase 231 Microbiology Data (last 24 hrs): 04/19/19 14:33 Blood - Blood Anaerobic Blood Culture - Final Assessment And Plan - Current Problems (Diagnosis) (1) Sepsis Current Visit: Yes Status: Acute Qualifiers: Sepsis type: sepsis due to unspecified organism Qualified Code(s): A41.9 - Sepsis, unspecified organism (2) Pneumonia Current Visit: Yes Status: Acute Plan: Suspicious for aspiration Qualifiers: Pneumonia type: due to unspecified organism Laterality: right Lung location: lower lobe of lung Qualified Code(s): J18.1 - Lobar pneumonia, unspecified organism (3) Urinary tract infection Current Visit: Yes Status: Suspected Qualifiers: Urinary tract infection type: acute cystitis Hematuria presence: without hematuria Qualified Code(s): N30.00 - Acute cystitis without hematuria (4) Acidosis Current Visit: Yes Status: Acute (5) Acute respiratory failure Current Visit: Yes Status: Acute Qualifiers: Respiratory failure complication: hypercapnia Qualified Code(s): J96.02 - Acute respiratory failure with hypercapnia (6) Hyponatremia Current Visit: Yes Status: Acute Plan: Improving (7) Hyperkalemia Current Visit: Yes Status: Resolved (8) Hypertension Onset Date: 12/07/15 Current Visit: Yes Status: Chronic Qualifiers: Hypertension type: essential hypertension Qualified Code(s): I10 - Essential (primary) hypertension (9) Dysarthria Current Visit: Yes Status: Acute (10) Depression Current Visit: Yes Status: Chronic Qualifiers: Depression Type: major depressive disorder Major depression recurrence: recurrent Active/Remission status: remission status unspecified Qualified Code(s): F33.9 - Major depressive disorder, recurrent, unspecified (11) PAD (peripheral artery disease) Current Visit: Yes Status: Chronic - Plan Transfer to the floor - Continue to monitor for sepsis - does meet criteria at this time with initial temperature of 96.5, rest Re rate of 38, WBC count of 12.7 along with a suspected source in pneumonia plus urinary tract infection. - Continue IV the antibiotics with Levaquin and Zosyn. Continue IV steroids - Continue to provide oxygen and BiPAP as needed. If no improvement, will consult pulmonology. - continue to keep NPO, patient with history of dysplasia, prior stroke and right lower lobe pneumonia, suspicious for aspiration. Will get speech therapy , modified barium swallow study. - adjust IV fluids to D5 half-normal saline at maintenance dose - continue home medications as tolerated - per ER chart review, patient and caregiver both refused t-PA if needed. Will consider MRI if symptoms do not improve. Will also consider getting neurology consulted symptoms of dysarthria do not improve. - will need to discuss code status with patient and caregiver DVT prophylaxis: Home aspirin and Plavix GI prophylaxis: None Diet: NPO Disposition: Transfer to the floor. Continue IV antibiotics and continue to monitor. Follow up cultures and a.m. labs
[2019-04-20] MEDS: D5 0.45 NS 1,000 ML IV SCH (10:07)
[2019-04-20] MEDS: Levofloxacin500mg IV 500 MG/100 ML BAG IV SCH (17:17)
[2019-04-21] MEDS: PIPER/TAZO/NS 3.375gm 3.375 GM/100 ML BAG IVPB SCH ×3 (00:29→16:05)
[2019-04-21] MEDS: METHYLPREDNISOLONE 40 MG INJ IV SCH ×3 (00:29→16:05)
[2019-04-21] MEDS: IPRATROPIUM BROM 0.5MG/2.5ML NEB SCH ×4 (02:00→19:40)
[2019-04-21] MEDS: ALBUTEROL 2.5 MG/3 ML NEB SOL NEB SCH ×6 (03:07→19:40)
[2019-04-21 04:42] LABS: Absolute Lymphocytes (CBC) 0.8 K/uL (0.7-4.9); Basophils % 0.2 % (0-1.3); Eosinophils % 0.1 % (0-4.4); Hematocrit 41.6 % (39.6-49.0); Lymphocytes % 6.4 % (15.3-44.8); MPV 8.1 fL (7.6-11.3); RBC Red Blood Cell Count 4.68 M/uL (4.33-5.43)
[2019-04-21 06:09] LABS: Albumin 3.7 g/dL (3.4-5.0); Bilirubin Total 0.4 mg/dL (0.2-1.0); Magnesium 2.1 mg/dL (1.8-2.4); Phosphorus 2.6 mg/dL (2.5-4.9); Potassium 3.7 mmol/L (3.5-5.1); Protein, Total 7.3 g/dL (6.4-8.2)
[2019-04-21] MEDS: D5 0.45 NS 1,000 ML IV SCH ×3 (06:32→21:51)
--- NOTE | 2019-04-21 07:57 | EKG ---
Test Date: 2019-04-19 Test Time: 14:31:51 Certified Medical Transcriptionist: RAJINDER MEASUREMENT RESULTS: Intervals: Rate: 83 MD: 192 QRSD: 122 QT: 376 QTc: 441 [place]: P: 79 MD: 192 QRS: 68 T: 68 INTERPRETIVE STATEMENTS: Normal sinus rhythm Right bundle branch block Abnormal ECG Compared to ECG 01/11/2016 14:57:01 No significant changes Electronically Signed On 04-21-19 07:54:45 CDT by Jono Miller
--- NOTE | 2019-04-21 10:31 | RAD REPORT ---
EXAM DESCRIPTION: RAD - Barium Swallow Modified - 04/21/2019 10:24 am CLINICAL HISTORY: Dysphagia, COMPARISON: None. TECHNIQUE: The patient was given liquid, semi-solid and solid forms of barium. Lateral view fluorosc opic imaging was performed in conjunction with speech pathology service. FINDINGS: Cineloop acquisitions: 21 Fluoro time: 3 minutes 17 seconds laryngeal penetration : cleared with pudding and thin by cup sip , not cleared with thin by straw , n ectar and honey pharyngeal residue: vallecular , pyriform, posterior wall other : cleared swallow (3-5 seconds), decreased pharyngeal contraction and epiglottic inversion mod-severe , mild-mod and mod with all consistencies , required 3-4 subsequent swallows to decrease t o mild IMPRESSION: Modified barium swallow as summarized above and fully detailed on speech pathology repor raghu
[2019-04-21] MEDS: NICOTINE 21 MG/PAT TD SCH (10:34)
--- NOTE | 2019-04-21 12:25 | P.PN ---
Subjective Date of Service: 04/21/19 Chief Complaint: Dysarthria and shortness of breath Subjective: No new changes Patient seen and examined at bedside. No family at bedside. Chart reviewed and case discussed with nursing staff. Patient now off of BiPAP. Continues to be on oxygen, oxygenating well. Breathing improved. Speech and mentation back to baseline, per caregiver at bedside. Per caregiver, patient with a recent history of worsening dysphasia. Review of Systems 10-point ROS is otherwise unremarkable Physical Examination - Vital Signs Temperature: 99.1 F Blood Pressure: 172/98 Pulse: 97 Respirations: 18 Pulse Ox (%): 92 - Physical Exam General: Alert, In no apparent distress, Oriented x3 Respiratory: Clear to auscultation bilaterally, Normal air movement Cardiovascular: Regular rate/rhythm, Normal S1 S2 Gastrointestinal: Normal bowel sounds, No tenderness Neurological: Abnormal speech (at baseline) - Studies Microbiology Data (last 24 hrs): 04/19/19 14:33 Blood - Blood Anaerobic Blood Culture - Final Assessment And Plan - Current Problems (Diagnosis) (1) Sepsis Current Visit: Yes Status: Acute Plan: Transferred to the floor from ICU. Improving. - Continue to monitor for sepsis - met criteria on admission with initial temperature of 96.5, rest Re rate of 38, WBC count of 12.7 along with a suspected source in pneumonia plus urinary tract infection. - Continue IV the antibiotics with Levaquin and Zosyn. Continue IV steroids Qualifiers: Sepsis type: sepsis due to unspecified organism Qualified Code(s): A41.9 - Sepsis, unspecified organism (2) Pneumonia Current Visit: Yes Status: Acute Plan: Suspicious for aspiration. - Conitnue IV Antibiotics as above. - Continue to provide oxygen and BiPAP as needed. If no improvement, will consult pulmonology. Qualifiers: Pneumonia type: due to unspecified organism Laterality: right Lung location: lower lobe of lung Qualified Code(s): J18.1 - Lobar pneumonia, unspecified organism (3) Urinary tract infection Current Visit: Yes Status: Suspected Plan: Continue IV antibiotics, pending cultures. Qualifiers: Urinary tract infection type: acute cystitis Hematuria presence: without hematuria Qualified Code(s): N30.00 - Acute cystitis without hematuria (4) Acute respiratory failure Current Visit: Yes Status: Acute Plan: Likely secondary to pneumonia. Improving. - Continue Oxygen and bipap as needed. Continue to wean as tolerated. Now, off of Bi-pap, on NC oxgen . Qualifiers: Respiratory failure complication: hypercapnia Qualified Code(s): J96.02 - Acute respiratory failure with hypercapnia (5) Hypertension Onset Date: 12/07/15 Current Visit: No Status: Chronic Plan: Initially elevated. - Now stable, continue IV medications for BP at this time. Will continue to monitor and adjust as needed. Qualifiers: Hypertension type: essential hypertension Qualified Code(s): I10 - Essential (primary) hypertension (6) Dysphagia Current Visit: Yes Status: Acute Plan: Secondary to prior CVA. - continue to keep NPO, patient with history of dysphasia, prior stroke and right lower lobe pneumonia, suspicious for aspiration. Will get speech therapy , modified barium swallow study, pending. (7) Dysarthria Current Visit: Yes Status: Acute Plan: Now back to baseline. Could be secondary due to prior stroke vs a possibility of acute CVA. Unable to do MRI due to questionable metal object after surgery/ stent. - per ER chart review, patient and caregiver both refused t-PA if needed. Will also consider getting neurology consulted symptoms of dysarthria do not improve. (8) Depression Current Visit: Yes Status: Chronic Qualifiers: Depression Type: major depressive disorder Major depression recurrence: recurrent Active/Remission status: remission status unspecified Qualified Code(s): F33.9 - Major depressive disorder, recurrent, unspecified (9) PAD (peripheral artery disease) Current Visit: Yes Status: Chronic (10) Acidosis Current Visit: Yes Status: Resolved (11) Hyponatremia Current Visit: Yes Status: Resolved Plan: Resolved with IVF. (12) Hyperkalemia Current Visit: Yes Status: Resolved (13) CVA (cerebral vascular accident) Current Visit: Yes Status: Acute Plan: History of prior stroke, with new onset of speech abnormality, now back to baseline. Mentation also back to baseline. Continue medication management. Qualifiers: CVA mechanism: unspecified Qualified Code(s): I63.9 - Cerebral infarction, unspecified - Plan DVT prophylaxis: Home aspirin and Plavix GI prophylaxis: None Diet: NPO Disposition: Pending MBS, PT/OT/ST
[2019-04-21] MEDS ORDERED: ALBUTEROL INHALER 60 PUFF/8 GM IH PRN (16:45)
[2019-04-21] MEDS ORDERED: hydrOXYzine HCl 25 MG TAB PO PRN (17:00)
[2019-04-21] MEDS: Levofloxacin500mg IV 500 MG/100 ML BAG IV SCH (18:00)
[2019-04-21] MEDS: PERPHENAZINE PO SCH (21:00)
[2019-04-21] MEDS: BUSPIRONE HCL 5 MG TABLET PO SCH (21:51)
[2019-04-21] MEDS: LORAZEPAM 1 MG TABLET PO SCH (21:51)
[2019-04-21] MEDS: CARBAMAZEPINE 200 MG TAB PO SCH (21:52)
[2019-04-22] MEDS: PIPER/TAZO/NS 3.375gm 3.375 GM/100 ML BAG IVPB SCH ×3 (00:52→16:38)
[2019-04-22] MEDS: METHYLPREDNISOLONE 40 MG INJ IV SCH ×3 (00:53→16:38)
[2019-04-22] MEDS: ALBUTEROL 2.5 MG/3 ML NEB SOL NEB SCH ×6 (01:50→19:30)
[2019-04-22] MEDS: IPRATROPIUM BROM 0.5MG/2.5ML NEB SCH ×4 (01:51→19:30)
[2019-04-22 08:25] LABS: Absolute Lymphocytes (CBC) 0.9 K/uL (0.7-4.9); Basophils % 0.2 % (0-1.3); Hematocrit 43.1 % (39.6-49.0); Lymphocytes % 9.1 % (15.3-44.8); Monocytes % 6.7 % (3.3-12.3); RBC Red Blood Cell Count 4.82 M/uL (4.33-5.43)
[2019-04-22 08:55] LABS: Albumin 3.2 g/dL (3.4-5.0); Bilirubin Total 0.4 mg/dL (0.2-1.0); Potassium 3.4 mmol/L (3.5-5.1)
[2019-04-22] MEDS: PERPHENAZINE PO SCH ×2 (09:00→20:57)
[2019-04-22] MEDS: BUSPIRONE HCL 5 MG TABLET PO SCH ×3 (09:01→20:58)
[2019-04-22] MEDS: LORAZEPAM 1 MG TABLET PO SCH ×2 (09:01→20:58)
[2019-04-22] MEDS: NICOTINE 21 MG/PAT TD SCH (09:01)
[2019-04-22] MEDS: CLOPIDOGREL 75 MG TABLET PO SCH (09:02)
[2019-04-22] MEDS: CARBAMAZEPINE 200 MG TAB PO SCH ×2 (09:02→20:58)
[2019-04-22] MEDS: LISINOPRIL 10 MG TAB PO SCH (09:02)
[2019-04-22] MEDS: D5 0.45 NS 1,000 ML IV SCH (12:11)
--- NOTE | 2019-04-22 14:58 | PN ---
Date of Progress Note: 04/22/2019 Subjective: The patient seen and examined. Chart reviewed and case discussed with RN. Care provide r at the bedside. The patient has some abnormal speech due to his stroke. Unable to have repeat MRI done due to possibility of metal in his body. The patient placed on a modified diet. Medications: List reviewed. Code Status: Full. Physical Examination: Vital Signs: Temperature 98, heart rate 67, blood pressure 156/72, respirations 16, O2 100% on BiPAP with 45% FiO2. General: Awake, alert, oriented x3. Elderly male. CV: S1 and S2. Peripheral pulses present. Regular rate and rhythm. Respiratory: Moving air well bilaterally. No wheezing or stridor. Gastrointestinal: Abdomen is soft, nontender, nondistended. Positive bowel sounds. Extremities: No clubbing, cyanosis, or edema. Neuro: The patient has dysphagia, has facial droop, right-sided weakness. Laboratory Data: Sodium 134, potassium 3.4, chloride 99, CO2 29, BUN 13, creatinine 1.01, glucose 15 2, lactate 1.6, calcium 8.9, AST 74, ALT 126, albumin 3.2. Procalcitonin 0.16. WBC 10, H and H 14.4 and 43.1, platelets 344, neutrophils 84%. Urine culture growing out Escherichia coli and Serratia w ith multi-drug resistance, sensitive to meropenem. Assessment And Plan: 1.Sepsis secondary to urinary tract infection and pneumonia. We will continue with IV antibiotics. Urine culture growing out Serratia and Escherichia coli. Continue treatment. 2.Pneumonia, right lower lobe, likely due to aspiration pneumonia. The patient has had speech thera py evaluation. Now on thickened liquids, modified pureed diet. 3.Acute cystitis without hematuria secondary to Escherichia coli and Serratia. We will adjust IV an tibiotics depending on sensitivities. 4.Metabolic acidosis, improved. 5.Acute respiratory failure with hypercapnia. The patient requiring BiPAP intermittently. 6.Hyponatremia, improved. 7.Hyperkalemia, corrected. 8.Hypertension, essential, stable. Continue medications. 9.Dysarthria. 10.Major depressive disorder, recurrent. 11.Peripheral arterial disease, chronic. We will continue with home medications. The patient unabl e to have MRI due to possible metal. I will investigate further. Sepsis is improving. 12.Dysphagia. Now on status post modified barium swallow study. On modified diet. 13.History of cerebrovascular accident with right-sided weakness. 14.Deep vein thrombosis prophylaxis addressed. Blood cultures still pending. 15.Likely discharge in next 24 to 48 hours. Continue PT, OT. The patient will likely go home with home health care and caregiver. /ROCK Voice ID: [id number] Report ID: [id number]
[2019-04-22] MEDS: Levofloxacin500mg IV 500 MG/100 ML BAG IV SCH (17:00)
[2019-04-22] MEDS: POTASSIUM CL SA 10 MEQ TAB PO ONE ×2 (17:44→17:53)
[2019-04-22] MEDS ORDERED: POTASSIUM 25 MEQ EFFERV TAB PO ONE (18:22)
[2019-04-23 00:54] LABS: Potassium 3.7 mmol/L (3.5-5.1)
[2019-04-23] MEDS: PIPER/TAZO/NS 3.375gm 3.375 GM/100 ML BAG IVPB SCH ×2 (01:06→08:29)
[2019-04-23] MEDS: METHYLPREDNISOLONE 40 MG INJ IV SCH ×2 (01:06→08:27)
[2019-04-23] MEDS: ALBUTEROL 2.5 MG/3 ML NEB SOL NEB SCH ×3 (01:30→07:45)
[2019-04-23] MEDS: IPRATROPIUM BROM 0.5MG/2.5ML NEB SCH ×2 (01:30→07:45)
[2019-04-23] MEDS ORDERED: POTASSIUM 25 MEQ EFFERV TAB PO ONE (01:32)
[2019-04-23] MEDS ORDERED: HYDROCODONE/APAP 10/325 TAB PO ONE (02:03)
[2019-04-23] MEDS ORDERED: TEMAZEPAM 15 MG CAP PO ONE (02:04)
[2019-04-23] MEDS: D5 0.45 NS 1,000 ML IV SCH (04:50)
--- NOTE | 2019-04-23 07:54 | EKG ---
Test Date: 2019-04-23 Test Time: 00:32:34 Curator Of Collections: RT-O MEASUREMENT RESULTS: Intervals: Rate: 73 MS: 158 QRSD: 116 QT: 420 QTc: 462 [place]: P: 76 MS: 158 QRS: 68 T: 66 INTERPRETIVE STATEMENTS: Normal sinus rhythm Incomplete right bundle branch block T wave abnormality, consider anterior ischemia Prolonged QT Abnormal ECG Compared to ECG 04/19/2019 14:31:51 Incomplete right bundle-branch block now present Right bundle-branch block no longer present Electronically Signed On 04-23-19 07:53:41 CDT by Jono Miller
[2019-04-23] MEDS: CARBAMAZEPINE 200 MG TAB PO SCH (08:26)
[2019-04-23] MEDS: LISINOPRIL 10 MG TAB PO SCH (08:26)
[2019-04-23] MEDS: LORAZEPAM 1 MG TABLET PO SCH (08:26)
[2019-04-23] MEDS: BUSPIRONE HCL 5 MG TABLET PO SCH ×2 (08:26→12:52)
[2019-04-23] MEDS: CLOPIDOGREL 75 MG TABLET PO SCH (08:26)
[2019-04-23] MEDS: PERPHENAZINE PO SCH (08:27)
[2019-04-23] MEDS: NICOTINE 21 MG/PAT TD SCH (08:28)
[2019-04-23 09:09] VITALS: O2SAT 97
[2019-04-23 12:42] VITALS: BP 168/86; TEMP 98.9
--- NOTE | 2019-04-23 23:31 | DS ---
Date of Discharge: 04/23/2019 Consultants: None. Admitting Diagnoses: 1.Sepsis. 2.Pneumonia, right lower lobe. 3.UTI, acute cystitis without hematuria. 4.Acidosis. 5.Acute respiratory failure with hypercapnia. 6.Hyponatremia. 7.Hyperkalemia. 8.History of essential hypertension. 9.Dysarthria. 10.Major depressive disorder, recurrent. 11.Peripheral arterial disease. Discharge Diagnoses: 1.Sepsis secondary to UTI and pneumonia, resolved. 2.Pneumonia, right lower lobe, likely secondary to aspiration. 3.Acute cystitis without hematuria secondary to E coli and Serratia. 4.Metabolic acidosis, resolved. 5.Acute respiratory failure with hypercapnia, improved. 6.Hyponatremia, improved. 7.Hyperkalemia, corrected. 8.Essential hypertension, stable. 9.Dysarthria. 10.Major depressive disorder, recurrent. 11.Dysphagia, on modified diet. 12.Peripheral arterial disease. 13.History of CVA with right-sided weakness, back to baseline. 14.Incomplete right bundle-branch block. Hospital Course: The patient is a 73-year-old male with past medical history of peripheral arterial disease, history of CVA, depression, hypertension, underlying psychiatric disease on multiple medicat ions, comes in with shortness of breath and dysarthria. The patient does have a caregiver. The harjinder ent's workup including head CT scan was negative for any acute abnormalities, did show old infarcts a nd chronic changes. Chest x-ray was positive for right lung base pneumonia. He did have multiple el ectrolyte abnormalities including hyponatremia with a sodium of 123, potassium of 5.2, did have eleva subhash white count of 12.7. The patient was hypercapnic. The patient and caregiver refused tPA adminis tration despite explanation of risks and benefits. MRI was unable to be done due to possibility of m etal that the patient may have. Due to him being a poor historian and caregiver not knowing, it is u nable to safely perform MRI. The patient was started on IV antibiotics for the cystitis and pneumoni a causing the sepsis. He responded well. White count normalized. The patient's culture results catrina wed E coli and Serratia in the urine with multiple drug-resistant strains. Blood cultures remained n egative. His antibiotics were adjusted. The patient's speech had returned back to baseline during a dmission. The patient overall did well. Blood pressure also improved. Sepsis resolved. The patien t's electrolyte abnormalities were corrected. Procalcitonin remained negative. Lactate was also nor mal. The patient does have some elevated liver enzymes, unclear etiology. He will need to have a re peat liver enzymes in 1-2 weeks by PCP. The patient was also seen by Speech Therapy, who recommended modified barium swallow study, which was done. The patient was switched over to pureed diet with th ickened liquids. The patient will need to continue with aspiration precautions. The patient was the n cleared for discharge. He was back to his baseline, was discharged with caregiver at home. Medications: As per medication reconciliation list. Followup: Follow up with primary care physician in 2-3 days. Return to ER for worsening condition. Diet: Pureed diet with thickened liquids. Activity: Fall precautions. The patient is wheelchair bound. Physical Examination: General: Awake and alert, not in any acute distress, elderly male. CV: S1, S2. Respiratory: Moving air well bilaterally. Abdomen: Soft, nontender, nondistended. Positive bowel sounds. Extremities: No clubbing, cyanosis, or edema. Neuro: Right-sided weakness. The patient has abnormal speech. Total time spent discharging the patient was 35 minutes. /ROCK Voice ID: [id number] Report ID: [id number]
== END 2019-04-23 13:34 | disposition home health service (06) | DRG 871 ==
LOC: ER 14:27 → ERHOLD 16:04 → 3RD-ICU 19:17 → 4TH 04-20 13:15
PROVIDERS: ADMIT Family Medicine; ATTEND Family Medicine
DX: A41.53 Sepsis due to Serratia (principal); J69.0 Pneumonitis due to inhalation of food and vomit; J96.02 Acute respiratory failure with hypercapnia; N30.00 Acute cystitis without hematuria; E87.2 Acidosis; E87.1 Hypo-osmolality and hyponatremia; F33.9 Major depressive disorder, recurrent, unspecified; A41.51 Sepsis due to Escherichia coli [E. coli]; I10 Essential (primary) hypertension; R13.10 Dysphagia, unspecified; R47.1 Dysarthria and anarthria; E87.5 Hyperkalemia; I45.10 Unspecified right bundle-branch block; I73.9 Peripheral vascular disease, unspecified; Z79.82 Long term (current) use of aspirin; Z86.73 Personal history of transient ischemic attack (TIA), and cerebral infarction without residual deficits; Z89.511 Acquired absence of right leg below knee
CPT/HCPCS: 36415; 70450; 71045; 74230; 80048; 80053; 80076; 80156; 81003; 82805; 83605; 83690; 83735; 83880; 83930; 83935; 84100; 84145; 84300; 84484; 85025; 85610; 87040; 87077; 87086; 87088; 87186; 92611; 93005; 94640; 94660; 96365; 96375; 97163; 99291; C9113; J1100; J2543; J2920; J2930; J3475; J7030